=== PATIENT | female | born 1970 | race Caucasian/White ===

== ENCOUNTER 2018-05-09 01:03 | Inpatient (IN) | payer BC, OTHER ==
--- NOTE | 2018-05-09 01:10 | ED Physician Documentation ---
Abdominal Pain - HISTORIAN Historian: patient - HPI Chief Complaint: Abdominal Pain Additonal Information: Patient states that she started ot have some abd apin about 2-3 hours ago. Seems ot come in waves. Occurs maily in the lower abd area. Has become lighted, diaphoretic at times. Last BM was normal several hours ago. No diarrhea noted. Has been nauseated with vomiting. No fever or chills noted. Onset: hours Duration: waxing, waning Timing: still present Context: denies: out of country travel, bad food Severity: severe Quality: cramping, sharp, stabbing Associated Symptoms: nausea, vomiting. denies: fever, chills, coffee ground emesis, bloody emesis, diarrhea, bloody stools, grossly bloody stools Exacerbated by: nothing Relieved by: nothing - ROS CONST: no problems GI/: denies: constipation, black stools, bloody urine, bloody stools, dark urine - SOCIAL HX Smoking History: non-smoker Alcohol Use: none Drug Use: none - FAMILY HX Family History: no significant history - PAST HX Past History: none Ischemic Bowel Risk Factors: none Other History: none Surgeries/Procedures: hysterectomy (rectocele repair, urethral sling, multiple er surgery, T&A, ) Immunizations: referred to PCP Home Medications: Ambulatory Orders Medication Instructions Recorded Cetirizine HCl [Zyrtec] 10 mg PO DAILY u2 04/20/15 Sertraline HCl [Zoloft] 50 mg PO DAILY u2 01/26/17 Levothyroxine Sodium [Synthroid] 50 mcg PO D 05/09/18 Allergies/Adverse Reactions: Allergies Allergy/AdvReac Type Severity Reaction Status Date / Time benzoyl peroxide Allergy Severe Hives Verified 05/09/18 01:08 [From Panoxyl] - VITAL SIGNS Vital Signs: Vital Signs Temp Pulse Resp BP Pulse Ox 98.2 F 84 20 140/86 98 05/09/18 01:04 05/09/18 01:04 05/09/18 01:04 05/09/18 01:04 05/09/18 01:04 - REVIEWED ASSESSMENTS Nursing Assessment Reviewed: Yes Vitals Reviewed: Yes ED Results Lab/Radiology - Lab Results Lab Results: Lab Results 05/09/18 05/09/18 05/09/18 Unknown Unknown Unknown WBC 13.70 K/ul H K/ul (4.00-12.00) RBC 4.63 M/ul M/ul (3.90-5.20) Hgb 14.1 g/dL g/dL (12.0-16.0) Hct 41.9 % % (34.5-46.5) MCV 90.5 fl fl (80.0-100.0) MCH 30.4 pg pg (28.0-34.0) MCHC 33.6 g/dL g/dL (30.0-36.0) RDW 13.5 % % (11.3-14.3) Plt Count 221 K/mm3 K/mm3 (130-400) Neut % (Auto) 84.7 % H % (39.0-79.0) Lymph % (Auto) 10.2 % L % (16.0-50.0) [place] % (Auto) 3.1 % % (0.0-11.0) Eos % (Auto) 1.1 % % (0.0-6.8) Baso % (Auto) 0.2 (0.0-1.5) Neut # (Auto) 11.6 # k/uL H # k/uL (1.4-7.7) Lymph # (Auto) 1.4 # k/uL # k/uL (0.6-4.0) [place] # (Auto) 0.4 # k/uL # k/uL (0.0-0.9) Eos # (Auto) 0.2 # k/uL # k/uL (0.0-0.6) Baso # (Auto) 0.0 # k/uL # k/uL (0.0-0.5) Reactive Lymphs % 0.8 % % (0.0-5.0) Reactive Lymphs # 0.1 # k/uL # k/uL (0.0-0.8) Sodium 140 mmol/L mmol/L (136-145) Potassium 3.3 mmol/L L mmol/L (3.5-5.1) Chloride 101 mmol/L mmol/L (98-107) Carbon Dioxide 27 mmol/L mmol/L (22-30) BUN 18 mg/dL H mg/dL (7-17) Creatinine 0.80 mg/dL mg/dL (0.52-1.04) Estimated Creat Clear 114 Est GFR ( Amer) > 60 (60 - ) Est GFR (Non-Af Amer) > 60 (60 - ) Glucose 141 mg/dL H mg/dL (74-106) Calcium 9.9 mg/dL mg/dL (8.4-10.2) Total Bilirubin 0.2 mg/dL mg/dL (0.2-1.3) AST 18 U/L U/L (15-46) ALT 29 U/L U/L (13-69) Alkaline Phosphatase 94 U/L U/L (38-126) Total Protein 7.9 g/dL g/dL (6.3-8.2) Albumin 4.8 g/dL g/dL (3.5-5.0) Lipase 115 U/L U/L (23-300) - Radiology Radiology Impressions: Abdomen series and chest Acute lower abdominal pain Findings: Multiple small bilateral pelvic calcifications are too small to characterize. Moderate colonic stool is present without bowel obstruction or free air. A single view of the chest reveals clear lungs, hyperinflation, and normal heart size. Impression: Constipation and hyperinflation. Computed tomography abdomen and pelvis without contrast History: Acute low abdominal pain Findings: Transverse abdomen and pelvis sections are obtained without contrast revealing small liver cysts and focal gallbladder wall calcification versus gallstones. There is moderate distention of multiple mid small bowel loops. The proximal and distal small bowel are decompressed. The spleen, adrenals, pancreas, kidneys, and colon are unremarkable except for a few colonic diverticula. Pelvic sections reveal decompressed urinary bladder, hysterectomy, and normal appendix. A few sigmoid diverticula are present without evidence of diverticulitis. Impression: 1. Multiple distended mid small bowel loops with proximal and distal small bowel decompression suggesting closed loop obstruction. 2. Cholelithiasis versus minimal gallbladder wall calcification. 3. Colonic diverticulosis without diverticulitis. - Orders Orders: ED Orders Category Date Time Status Place IV Lock 1T Care 05/09/18 01:17 Active ABD SERIES PA CHEST [RAD] Stat Exams 05/09/[address] ABD & PELVIS W/O CON Stat Exams 05/09/18 Taken CBC/PLATELET/DIFF Routine Lab 05/09/18 Completed CMP Routine Lab 05/09/18 Completed LIPASE Stat Lab 05/09/18 Completed SERUM HCG Routine Lab 07/15/18 Received URINALYSIS Routine Lab 05/09/18 Received 0.9 % Sodium Chloride [Normal Saline] 1,000 ml Med 05/09/18 01:30 Ordered IV Q10H Ketorolac Tromethamine [Toradol] Med 05/09/18 01:17 Discontinued 30 mg IVP NOW ONE Ondansetron HCl/Pf [Zofran 4 mg/2 ml] Med 05/09/18 01:14 Discontinued 4 mg IVP NOW ONE Abdominal Pain Physical Exam - Physical Exam General Appearance: alert, moderate distress EENT: ENT inspection normal, pharynx normal NECK: normal inspection, supple RESPIRATORY: no resp distress, chest non-tender, breath sounds normal. No: wheezes, rales, rhonchi CVS: reg rate & rhythm, heart sounds normal, equal pulses, no murmur ABDOMEN: soft, no organomegaly, no abdominal bruit, no distension, tenderness ( mid abd area), decreased BS. No: rebound, distended BACK: normal inspection, no CVA tenderness SKIN: warm/dry, normal color NEURO: oriented X3, mood/affect nml Vital Signs: Vital Signs Temp Pulse Resp BP Pulse Ox 98.2 F 84 20 140/86 98 05/09/18 01:04 05/09/18 01:04 05/09/18 01:04 05/09/18 01:04 05/09/18 01:04 Discharge Clincal Impression: Partial small bowel obstruction Referrals: Tianna Hoskins MD [Primary Care Provider] - 2 Days Condition: Stable Disposition: ADMITTED INPATIENT Decision to Admit: [id number] Date of Decison to Admit: 05/09/18 Decision Time: 04:23
[2018-05-09] MEDS ORDERED: ONDANSETRON HCL/PF 4 MG/ 2ML VIAL IVP ONE (01:14)
[2018-05-09] MEDS ORDERED: KETOROLAC TROMETHAMINE 30 MG/1ML VIAL IVP ONE (01:17)
[2018-05-09] MEDS ORDERED: 0.9 % SODIUM CHLORIDE 1,000 ML IV ONE ×2 (01:19→05:53)
[2018-05-09] MEDS ORDERED: 0.9 % SODIUM CHLORIDE 1,000 ML IV SCH ×2 (01:30→06:00)
[2018-05-09 01:59] LABS: BASOPHILS % 0.2 (0.0-1.5); EOSINOPHILS % 1.1 % (0.0-6.8); MEAN CORPUSCULAR HEMOGLOBIN 30.4 pg (28.0-34.0); MEAN CORPUSCULAR VOLUME 90.5 fl (80.0-100.0); MONOCYTES % 3.1 % (0.0-11.0); NEUTROPHILS # 11.6 # k/uL (1.4-7.7)
[2018-05-09 02:22] LABS: eGFR (African) > 60; eGFR (Non-African) > 60
--- NOTE | 2018-05-09 02:28 | Diagnostic Imaging Report ---
JOSE JACOBO [facility] [address] [facility].[address] [address] Report Submission Date: May 09, 2018 2:24:41 AM CDT Patient Study Name: SARA BURNS Date: May 09, 2018 2:01:06 AM CDT Modality Type: DX Gender: F Description: ABDOMEN : 66 Institution: [facility] Physician: JOSE JACOBO Abdomen series and chest Impression: Acute lower abdominal pain Findings: Multiple small bilateral pelvic calcifications are too small to characterize. Moderate colonic stool is present without bowel obstruction or free air. A single view of the chest reveals clear lungs, hyperinflation, and normal heart size. Impression: Constipation and hyperinflation. Electronically signed on May 09, 2018 2:24:41 AM CDT by: Christo ROMANO
--- NOTE | 2018-05-09 05:33 | History and Physical Report ---
History of Present Illnes - History of Present Illness Reason for Visit: abd pain History of Present Illness: 47-year-old white female who stated she went to bed on the evening of admission. . Early in the a.m. patient awoke with severe mid lower abdominal cramping type pain. Patient stated that was associated with some nausea, vomiting, diaphoresis , and chills. Patient denies that she said any previous abdominal pain similar to this. Patient did experience some lower back pain along with the abdominal pain. Patient is currently under treatment for urinary tract infection with amoxicillin. Patient stated her last bowel movement is approximately 4 to 5 hours before the abdominal pain started. Patient denies any medicated Oriana her hematemesis. Patient has had several abdominal surgeries including a hysterectomy and a bladder sling. Patient subsequently came to the ED for evaluation. On CT skating it appeared that the patient had some dilated loops of the mid small bowel. Patient was subsequently admitted for a partial small bowel obstruction. - Past Medical History Pulmonary: Other (allergic rhinitis) Psych: Depression Endocrine: Hypothyroidism - Past Surgical History Past Surgical History: Hysterectomy, Other (bladder urethral sling) - Past Family History Mother Family History: None Father Family History: None - Past Social History Smoke: No (second smoke when young) Alcohol: None Drugs: None Lives: With Family Domestic Violence: Negative - Health Maintenance Health Maintenance: Influenza Vaccine, Mammogram, Colonoscopy Influenza Vaccine: Current for this Influenza Season Pneumonia Vaccine: No Resuscitation Status: full code - Unable to Obtain History Unable to Obtain: No Review of Systems - Review of Systems Constitutional: Chills, Sweats. negative: Fever, Weakness Eyes: negative: pain, vision change ENT: negative: Ear Pain, Ear Discharge, Nose Pain, Nose Discharge, Nose Congestion, Throat Pain, Throat Swelling Respiratory: negative: Cough, Shortness of Breath, Hemoptysis, SOB with Excertion, Wheezing Cardiovascular: negative: Chest Pain Gastrointestinal: Nausea, Vomiting, Abdominal Pain. negative: Diarrhea, Constipation (last BM last night, soft, no blood), Melena, Hematochezia Genitourinary: Other (finishing amoxil for UTI). negative: Dysuria, Frequency, Incontinence, Hematuria Musculoskeletal: negative: Neck Pain, Back Pain Skin: negative: Rash Neurological: negative: Weakness, Numbness, Incoordination, Confusion, Seizures - Medications/Allergies Allergies/Adverse Reactions: Allergies Allergy/AdvReac Type Severity Reaction Status Date / Time benzoyl peroxide Allergy Severe Hives Verified 05/09/18 01:08 [From Panoxyl] Home Medications: Home Medications Levothyroxine Sodium [Synthroid] 50 mcg PO D 05/09/18 Current Inpatient Medications: Current Inpatient Medications Sodium Chloride (Normal Saline) 1,000 mls @ 1,000 mls/hr IV Q10H CRISTAL Last Admin: 05/09/18 01:28 Dose: 1,000 mls/hr Exam - Exam General: Alert, Oriented to Person, Oriented to Place, Oriented to Time, Cooperative HEENT: Atraumatic, PERRLA, EOMI, Mouth Mucous membr. moist/Lydia, Nose Mucous membr. moist/Lydia, Hearing Grossly Normal Neck: Normal Range of Motion Carotids: WNL Thyroid: WNL Lungs: Clear to auscultation, Normal air movement, Speaks full Sentences Cardiovascular: Regular rate, Normal S1, Normal S2, No murmurs Abdomen: Soft, No hepatospenomegaly, No masses, Other (tenderness to the mid abd area, no guarding or rebound tenderness noted. ), Decreased Bowel Sounds Integumentary: Normal, Lydia, Warm, Dry Extremities: No clubbing, No cyanosis, No edema, Normal pulses, No tenderness/ swelling Neurological: Normal gait, Normal speech, Strength Equal Bilat, Normal tone, Sensation intact, Cranial nerves 3-12 NL, Reflexes 2+ Psych/Mental Status: Mental status NL, Mood NL, Appropriate Affect, Intact Judgment - Laboratory Results Laboratory Results: Laboratory Results 05/09/18 05/09/18 05/09/18 Unknown Unknown Unknown WBC 13.70 H RBC 4.63 Hgb 14.1 Hct 41.9 MCV 90.5 MCH 30.4 MCHC 33.6 RDW 13.5 Plt Count 221 Neut % (Auto) 84.7 H Lymph % (Auto) 10.2 L [place] % (Auto) 3.1 Eos % (Auto) 1.1 Baso % (Auto) 0.2 Neut # (Auto) 11.6 H Lymph # (Auto) 1.4 [place] # (Auto) 0.4 Eos # (Auto) 0.2 Baso # (Auto) 0.0 Reactive Lymphs % 0.8 Reactive Lymphs # 0.1 Sodium 140 Potassium 3.3 L Chloride 101 Carbon Dioxide 27 BUN 18 H Creatinine 0.80 Estimated Creat Clear 114 Est GFR ( Amer) > 60 Est GFR (Non-Af Amer) > 60 Glucose 141 H Calcium 9.9 Total Bilirubin 0.2 AST 18 ALT 29 Alkaline Phosphatase 94 Total Protein 7.9 Albumin 4.8 Lipase 115 Assessment/Plan - Assessment/Plan (1) Partial small bowel obstruction Status: Acute Assessment: I have consulted Dr Mitchell at [facility]. Advised to admit and put bowel at rest and then start some feedings and see how patient does. (2) UTI (urinary tract infection) Status: Acute Qualifiers: Urinary tract infection type: acute cystitis Hematuria presence: with hematuria Qualified Code(s): N30.01 - Acute cystitis with hematuria Assessment: Patient has been on Amoxil. Will switch to IV cipro. (3) Hypothyroidism Status: Chronic Qualifiers: Hypothyroidism type: unspecified Qualified Code(s): E03.9 - Hypothyroidism , unspecified Assessment: Will hold levothyroxine for now. VTE Assessment - RISK FACTOR SCORE VTE RISK FACTOR SCORES: AGE 40-60 YEARS, ANTICIPATED BED CONFINEMENT OR IMMOBILIZATION > 24 HOURS - RISK VTE MODERATE RISK: SCORE OF 2 (RISK PROXIMAL DVT 2-4%) PROPHYAXIS NEEDED
[2018-05-09] MEDS ORDERED: ENOXAPARIN SODIUM 30 MG/0.3 ML DISP.SYRIN SQ ONE (05:55)
[2018-05-09] MEDS ORDERED: ONDANSETRON HCL/PF 4 MG/ 2ML VIAL IVP PRN (05:57)
[2018-05-09] MEDS ORDERED: ENOXAPARIN SODIUM 30 MG/0.3 ML DISP.SYRIN SQ SCH (06:00)
[2018-05-09 06:32] VITALS: BMI 26.3
--- NOTE | 2018-05-09 07:09 | Diagnostic Imaging Report ---
JOSE JACOBO [facility] [address] [facility] [address] [place], [place]. [address] Report Submission Date: May 09, 2018 3:07:50 AM CDT Patient Study Name: SARA BURNS Date: May 09, 2018 2:49:38 AM CDT Modality Type: CT Gender: F Description: CT ABD PELVIS W/O CO : 66 Institution: [facility] Physician: JOSE JACOBO Computed tomography abdomen and pelvis without contrast History: Acute low abdominal pain Findings: Transverse abdomen and pelvis sections are obtained without contrast revealing small liver cysts and focal gallbladder wall calcification versus gallstones. There is moderate distention of multiple mid small bowel loops. The proximal and distal small bowel are decompressed. The spleen, adrenals, pancreas, kidneys, and colon are unremarkable except for a few colonic diverticula. Pelvic sections reveal decompressed urinary bladder, hysterectomy, and normal appendix. A few sigmoid diverticula are present without evidence of diverticulitis. Impression: 1. Multiple distended mid small bowel loops with proximal and distal small bowel decompression suggesting closed loop obstruction. 2. Cholelithiasis versus minimal gallbladder wall calcification. 3. Colonic diverticulosis without diverticulitis. 4. Normal appendix. 5. Hysterectomy. Electronically signed on May 09, 2018 3:07:50 AM CDT by: Christo ROMANO
[2018-05-09 07:27] LABS: APPEARANCE,URINE CLEAR (CLEAR); COLOR,URINE YELLOW (YELLOW); OCCULT BLOOD,URINE 2+ (NEGATIVE); UROBILINOGEN URINE 0.2 Eu (0.2-1.0)
[2018-05-09] MEDS ORDERED: CIPROFLOXACIN/D5W 200 ML IV ONE (08:52)
[2018-05-09] MEDS ORDERED: CIPROFLOXACIN/D5W 400 MG in PREMIX BAG 1 BAG IV SCH (09:00)
--- NOTE | 2018-05-09 09:02 | Diagnostic Imaging Report ---
RANJITH OSPINA [facility] [address] [facility] [address] [place], [place]. [address] Report Submission Date: May 09, 2018 8:56:04 AM CDT Patient Study Name: SARA BURNS Date: May 09, 2018 8:27:48 AM CDT Modality Type: DX Gender: F Description: ABDOMEN : 66 Institution: [facility] Physician: RANJITH OSPINA 1 view of the chest and 2 views of the abdomen History: reassess partial small bowel obstruction Comparison: May 09, 2018 Chest: Heart is normal in size. Minimal basilar prominent opacities. No focal consolidation, pleural effusion or pneumothorax. No acute osseous pathology Abdomen: Feces is again noted in the colon. Scattered minimally prominent small bowel loops with air-fluid levels are seen in the left abdomen. No free intraperitoneal air No acute osseous pathology Impression: 1. Scattered air-fluid levels and minimally prominent small bowel loops in the left abdomen may be related to known small bowel obstruction. Suggest followup 2. Feces throughout the colon. Electronically signed on May 09, 2018 8:56:04 AM CDT by: An ROMANO
[2018-05-09] MEDS ORDERED: POTASSIUM CHLORIDE 20 MEQ TABLET.ER PO ONE (16:35)
--- NOTE | 2018-05-09 16:39 | Discharge Summary ---
Discharge Summary - Discharge Sumary History of Present Illness: 47-year-old white female who stated she went to bed on the evening of admission. . Early in the a.m. patient awoke with severe mid lower abdominal cramping type pain. Patient stated that was associated with some nausea, vomiting, diaphoresis , and chills. Patient denies that she said any previous abdominal pain similar to this. Patient did experience some lower back pain along with the abdominal pain. Patient is currently under treatment for urinary tract infection with amoxicillin. Patient stated her last bowel movement is approximately 4 to 5 hours before the abdominal pain started. Patient denies any medicated Oriana her hematemesis. Patient has had several abdominal surgeries including a hysterectomy and a bladder sling. Patient subsequently came to the ED for evaluation. On CT skating it appeared that the patient had some dilated loops of the mid small bowel. Patient was subsequently admitted for a partial small bowel obstruction. Condition at Discharge: Stable Home Medications: Ambulatory Orders Medication Instructions Recorded Cetirizine HCl [Zyrtec] 10 mg PO DAILY u2 04/20/15 Sertraline HCl [Zoloft] 50 mg PO DAILY u2 01/26/17 Levothyroxine Sodium [Synthroid] 50 mcg PO D 05/09/18 Consultations this Visit: None Procedures this Visit: None Allergies/Adverse Reactions: Allergies Allergy/AdvReac Type Severity Reaction Status Date / Time benzoyl peroxide Allergy Severe Hives Verified 05/09/18 01:08 [From Panoxyl] Patient Problems: Current Active Problems Problem Status Onset Partial small bowel obstruction Acute UTI (urinary tract infection) Acute Hypothyroidism Chronic Discharge Summary: Patient was admitted with partial SBO after consult with General Surgery at [facility]. She was placed on bowel rest and IVF. She responded very well. Pain resolved. Bowel sounds were normal and patient passing flatus so CLD started. She tolerated well so she was advanced to a soft diet. Discharged home in good condition with close f/u with PCP. Hospital Course: Partial SBO. UIT. Disposition - Home
[2018-05-09] MEDS ORDERED: POTASSIUM CHLORIDE 20 MEQ TABLET.ER ONE (16:45)
[2018-05-09 17:00] VITALS: BP 99/54
== END 2018-05-09 16:56 | disposition home or self-care (01) | DRG 389 ==
LOC: ED 01:03 → SOUTH 05:20
PROVIDERS: ADMIT Family Medicine; ATTEND Family Medicine
DX: K56.699 Other intestinal obstruction unspecified as to partial versus complete obstruction (principal); N39.0 Urinary tract infection, site not specified
CPT/HCPCS: 74019; 74022; 74176; 80053; 81002; 83690; 85025; 87086; A9270; J0744; J1650; J1885; J2405; J7030; 96365; 96375; 99222; 99238